=== PATIENT | male | born 1985 | race Caucasian/White ===

== ENCOUNTER 2017-02-18 01:15 | Inpatient (IN) | payer OTHER ==
[~2017-02-18] VITALS: Ht 188 cm; Wt 103.2 kg
[~2017-02-18 01:15] MED LIST: BUSP5 PO; IBUP600T26 PO; LEVE500 PO; LORA-474 PO; NAPR500 PO; PERC5TAB12 PO; [UNRECOGNIZED DRUG - CODE] PO
[2017-02-18 01:23] VITALS: BP 120/89; PULSE 111; RESP 18; TEMP 98.5; O2SAT 97
--- NOTE | 2017-02-18 01:30 | PD ---
HPI Chief Complaint: Psychiatric Symptoms Time Seen by Provider: 01:27 Travel History International Travel<30 days: No Contact w/Intl Traveler<30days: No Traveled to known affect area: No History of Present Illness HPI 32-year-old male brought to the emergency department under Del Real act for psychiatric evaluation. Patient states he was brought here after an argument with his neighbors. He threatened to "get his gun." Patient denies suicidal homicidal intent or ideation. He was simply angry. He admits to drinking large amount of alcohol this evening. He denies any acute medical needs. He has no other symptoms to report. [facility] Past Medical History Anxiety: Yes Psychiatric: Yes (PTSD, MOOD DISORDER) Seizures: Yes (SINCE CHILDHOOD) Social History Alcohol Use: Yes (SOCIALLY) Tobacco Use: Yes (1 PPD) Substance Use: No Allergies-Medications (Allergen,Severity, Reaction): Coded Allergies: No Known Allergies (Verified , 08/30/13) Reported Meds & Prescriptions Reported Meds & Active Scripts Active Reported [Seizure Medication] Buspirone (Buspirone HCl) 5 Mg Tab 5 Mg PO BID Review of Systems Except as stated in HPI: all other systems reviewed are Neg Physical Exam Narrative GENERAL: Well-nourished male patient, clinically intoxicated but in no acute distress. SKIN: Focused skin assessment warm/dry. HEAD: Atraumatic. Normocephalic. EYES: Pupils equal and round. No scleral icterus. No injection or drainage. ENT: No nasal bleeding or discharge. Mucous membranes pink and moist. NECK: Trachea midline. No JVD. CARDIOVASCULAR: tachycardic rate and rhythm. No murmur appreciated. RESPIRATORY: No accessory muscle use. Clear to auscultation. Breath sounds equal bilaterally. GASTROINTESTINAL: Abdomen soft, non-tender, nondistended. Hepatic and splenic margins not palpable. MUSCULOSKELETAL: No obvious deformities. No clubbing. No cyanosis. No edema. NEUROLOGICAL: Awake and alert. No obvious cranial nerve deficits. Motor grossly within normal limits. Slurred speech. Data Data Last Documented VS Vital Signs Date Time Temp Pulse Resp B/P (MAP) Pulse Ox O2 Delivery O2 Flow Rate FiO2 02/18/17 01:23 98.5 111 18 120/89 (99) 97 Orders Orders Complete Blood Count With Diff (02/18/17 01:28) Basic Metabolic Panel (Bmp) (02/18/17 01:28) Psych Screen (02/18/17 01:28) Drug Screen, Random Urine (02/18/17 01:28) Alcohol (Ethanol) (02/18/17 01:28) Labs Laboratory Tests Test 02/18/17 01:45 White Blood Count 17.2 TH/MM3 Red Blood Count 5.23 MIL/MM3 Hemoglobin 15.8 GM/DL Hematocrit 46.3 % Mean Corpuscular Volume 88.6 FL Mean Corpuscular Hemoglobin 30.2 PG Mean Corpuscular Hemoglobin Concent 34.2 % Red Cell Distribution Width 12.7 % Platelet Count 314 TH/MM3 Mean Platelet Volume 7.9 FL Neutrophils (%) (Auto) 78.0 % Lymphocytes (%) (Auto) 13.8 % Monocytes (%) (Auto) 5.3 % Eosinophils (%) (Auto) 2.2 % Basophils (%) (Auto) 0.7 % Neutrophils # (Auto) 13.4 TH/MM3 Lymphocytes # (Auto) 2.4 TH/MM3 Monocytes # (Auto) 0.9 TH/MM3 Eosinophils # (Auto) 0.4 TH/MM3 Basophils # (Auto) 0.1 TH/MM3 CBC Comment DIFF FINAL Differential Comment Blood Urea Nitrogen 10 MG/DL Creatinine 0.89 MG/DL Random Glucose 122 MG/DL Calcium Level 8.6 MG/DL Sodium Level 137 MEQ/L Potassium Level 4.2 MEQ/L Chloride Level 103 MEQ/L Carbon Dioxide Level 24.3 MEQ/L Anion Gap 10 MEQ/L Estimat Glomerular Filtration Rate 98 ML/MIN Urine Opiates Screen NEG Urine Barbiturates Screen NEG Urine Amphetamines Screen NEG Urine Benzodiazepines Screen NEG Urine Cocaine Screen NEG Urine Cannabinoids Screen NEG Ethyl Alcohol Level 253 MG/DL [facility] Medical Decision Making Medical Screen Exam Complete: Yes Emergency Medical Condition: Yes Medical Record Reviewed: Yes Differential Diagnosis Intoxication versus mood disorder versus personality disorder versus adjustment reaction disorder Narrative Course 32-year-old male presents to [facility] department under Del Real act for psychiatric evaluation. Patient appears without distress. He is slightly tachycardic but agitated. He is clinically intoxicated. Lab work is complete and reviewed. Leukocytosis is likely secondary to stress reaction. Patient is medically cleared to undergo psychiatric screening for further evaluation and disposition. Mental health screening discussed with the patient. Psychiatric screen ordered. Laboratory Tests Test 02/18/17 01:45 White Blood Count 17.2 TH/MM3 Red Blood Count 5.23 MIL/MM3 Hemoglobin 15.8 GM/DL Hematocrit 46.3 % Mean Corpuscular Volume 88.6 FL Mean Corpuscular Hemoglobin 30.2 PG Mean Corpuscular Hemoglobin Concent 34.2 % Red Cell Distribution Width 12.7 % Platelet Count 314 TH/MM3 Mean Platelet Volume 7.9 FL Neutrophils (%) (Auto) 78.0 % Lymphocytes (%) (Auto) 13.8 % Monocytes (%) (Auto) 5.3 % Eosinophils (%) (Auto) 2.2 % Basophils (%) (Auto) 0.7 % Neutrophils # (Auto) 13.4 TH/MM3 Lymphocytes # (Auto) 2.4 TH/MM3 Monocytes # (Auto) 0.9 TH/MM3 Eosinophils # (Auto) 0.4 TH/MM3 Basophils # (Auto) 0.1 TH/MM3 CBC Comment DIFF FINAL Differential Comment Blood Urea Nitrogen 10 MG/DL Creatinine 0.89 MG/DL Random Glucose 122 MG/DL Calcium Level 8.6 MG/DL Sodium Level 137 MEQ/L Potassium Level 4.2 MEQ/L Chloride Level 103 MEQ/L Carbon Dioxide Level 24.3 MEQ/L Anion Gap 10 MEQ/L Estimat Glomerular Filtration Rate 98 ML/MIN Urine Opiates Screen NEG Urine Barbiturates Screen NEG Urine Amphetamines Screen NEG Urine Benzodiazepines Screen NEG Urine Cocaine Screen NEG Urine Cannabinoids Screen NEG Ethyl Alcohol Level 253 MG/DL Diagnosis Primary Impression: Alcohol intoxication Qualified Codes: F10.929 - Alcohol use, unspecified with intoxication, unspecified Additional Impression: Substance induced mood disorder Condition: Stable Madeline Cross Feb 18, 2017 01:30
[2017-02-18] MEDS ORDERED: SEIZURE MEDICATION (01:33)
[2017-02-18] MEDS ORDERED: BUSP5TAB PO (01:33)
[2017-02-18 01:54] LABS: AUTOMATED NEUTROPHIL # 13.4 TH/MM3 (1.8-7.7); BASOPHIL # 0.1 TH/MM3 (0-0.2); BASOPHIL % 0.7 % (0.0-2.0); EOSINOPHIL # 0.4 TH/MM3 (0-0.4); EOSINOPHIL % 2.2 % (0.0-4.0); HEMATOCRIT 46.3 % (39.0-51.0); HEMOGLOBIN 15.8 GM/DL (13.0-17.0); LYMPH % 13.8 % (9.0-44.0); LYMPHOCYTE # 2.4 TH/MM3 (1.0-4.8); MEAN CELL VOLUME 88.6 FL (80.0-100.0); MEAN CORPUSCULAR HEMOGLOBIN 30.2 PG (27.0-34.0); MEAN CORPUSCULAR HGB CONC 34.2 % (32.0-36.0); MEAN PLATELET VOLUME 7.9 FL (7.0-11.0); MONO % 5.3 % (0.0-8.0); MONOCYTE # 0.9 TH/MM3 (0-0.9); PLATELET COUNT 314 TH/MM3 (150-450); RED BLOOD COUNT 5.23 MIL/MM3 (4.50-5.90); RED CELL DISTRIBUTION WIDTH 12.7 % (11.6-17.2); WHITE BLOOD COUNT 17.2 TH/MM3 (4.0-11.0)
[2017-02-18 02:08] LABS: BICARBONATE 24.3 MEQ/L (21.0-32.0); CALCIUM 8.6 MG/DL (8.5-10.1); CREATININE 0.89 MG/DL (0.60-1.30)
[2017-02-18 07:00] VITALS: BP 125/65; PULSE 99; RESP 18; TEMP 98.7; O2SAT 96
[2017-02-18 09:03] VITALS: BP 123/67; PULSE 72; RESP 20; TEMP 98.6; O2SAT 96
[2017-02-18] MEDS ORDERED: LORA0.5T PO (13:35)
[2017-02-18] MEDS ORDERED: KEPP10002 PO ×2 (13:36→13:37)
[2017-02-18] MEDS ORDERED: ESCI10TA PO (13:38)
[2017-02-18] MEDS ORDERED: DIPH25CA PO (13:39)
[2017-02-18] MEDS ORDERED: ETOD200 PO (13:41)
[2017-02-18 14:22] VITALS: BP 126/69; PULSE 92; RESP 16; TEMP 98.6; O2SAT 98
[2017-02-18] MEDS: levETIRAcetam 500 MG TAB PO SCH (14:34)
[2017-02-18] MEDS ORDERED: diphenhydrAMINE HCL 50 MG/ML VIAL IM PRN (19:30)
[2017-02-18] MEDS ORDERED: ETODOLAC 200 MG CAP PO PRN (19:30)
[2017-02-18] MEDS ORDERED: LORazepam 2 MG/ML VIAL IM PRN (19:30)
[2017-02-18] MEDS ORDERED: diphenhydrAMINE HCL 50 MG CAP PO PRN (19:30)
[2017-02-18] MEDS ORDERED: MAGNESIUM HYDROXIDE SUSP 30 ML CUP PO PRN (19:30)
[2017-02-18] MEDS ORDERED: LORazepam 1 MG TAB PO PRN (19:30)
[2017-02-18] MEDS ORDERED: ALUMINUM/MAGNESIUM/SIMETH 30 ML CUP PO PRN (19:30)
[2017-02-18] MEDS ORDERED: ACETAMINOPHEN 325 MG TAB PO PRN (19:30)
[2017-02-18] MEDS ORDERED: traZODone HCL 50 MG TAB PO PRN (19:30)
--- NOTE | 2017-02-18 19:33 | HHI.HP ---
Provisional Diagnosis Admission Date [place] [facility]. Adjustment disorder with mixed disturbance Alcohol abuse Certification of Person's Competence To Provide Express and Informed Consent I have personally examined Abdifatah Bryan , a person being served at [facility] on, Feb 18, 2017 19:21. Express and informed consent means consent voluntarily given in writing, by a competent person, after sufficient explanation and disclosure of the subject matter involved to enable the person to make a knowing and willful decision without any element of force, fraud, deceit, duress, or other form of constraint or coercion. This person is 18 years of age or older, is not now known to be incompetent to consent to treatment with a guardian advocate, and does not have a health care surrogate or proxy currently making medical treatment decisions. I have found this person to be one of the following: [] Competent to provide express and informed consent, as defined above, for voluntary admission to this facility and is competent to provide express and informed consent for treatment. He/she has the consistent capacity to make well reasoned, willful, and knowing decisions concerning his or her medical or mental health treatment. The person fully and consistently understands the purpose of the admission for examination/placement and is fully capable of personally exercising all rights [place] [] Incompetent to provide express and informed consent to voluntary admission, and this is incompetent to provide express and informed consent to treatment. The person must be transferred to involuntary status and a petition for a guardian advocate filed with the Circuit Court. [] Refusing to provide express and informed consent to voluntary admission but is competent to provide express and informed consent for treatment. The person must be discharged or transferred to involuntary status. Form shall be completed within 24 hours of a person's arrival at the receiving facility and filed in the clinical record of each person: 1. Admitted on a voluntary basis 2. Permitted to provide express and informed consent to his/her own treatment 3. Allowed to transfer from involuntary to voluntary status 4. Prior to permitting a person to consent to his or her own treatment after having been previously found incompetent to consent to treatment. History of Present Illness Capacity: Has Capacity HPI 32-year-old white male presents under a Del Real act after making threats to get his firearm from his house in order to obtain his child, from a neighbor's home. The patient had been drinking alcohol heavily last night and had an alcohol level close to 300. He is reportedly a and his friends advised [place] [employer] that he was diagnosed with posttraumatic stress disorder. Apparently the division of children and families insisted on the patient being Del Real acted due to his threats of violence with a gun, extreme alcohol intoxication, and placing his child in some type of danger. The patient is currently very contrite. He understands he drank too much alcohol and states he normally only drinks socially. He does have a seizure disorder since childhood and he was placed back on seizure medications by this physician. The patient admits to drinking multiple beers once per week. He admits to having an argument with his neighbors and making a statement to his neighbors about going to get his gun to make appointment. Patient states the same thing to this physician and denies any actual suicidal or homicidal ideation. He does remark "I was drunk, it was stupid." He is calm at this time. He is in school to obtain a graduate degree in social work. 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 He is treated on an outpatient basis at the [facility]. Patient does have a history of being charged for drug possession in 2013. Review of Systems Psychiatric: COMPLAINS OF: Anxiety Except as stated in HPI: all other systems reviewed are Neg Past Psych History Psychological trauma history Patient reports being diagnosed with posttraumatic stress disorder and his service-connected through the [place]. Violence risk - others (6 mos) Moderate to high Violence risk - self (6 mos) Minimal to moderate Substance Abuse History Drugs/Alcohol past 12 months Certainly abuse alcohol last evening. Past Family Social History Coded Allergies: No Known Allergies (Verified , 08/30/13) Reported Medications Etodolac (Etodolac) 200 Mg Cap, 300 MG PO BID Y for PAIN, CAP 0 Refills Take with food. 02/18/17 Diphenhydramine (Diphenhydramine) 25 Mg Cap, 25 MG PO HS Y for INSOMNIA, CAP 0 Refills 02/18/17 Escitalopram (Escitalopram) 10 Mg Tab, 10 MG PO DAILY, #30 TAB 0 Refills 02/18/17 Levetiracetam (Keppra) 1,000 Mg Tab, 1500 MG PO HS for Control Seizures, #60 TAB 0 Refills 02/18/17 Levetiracetam (Keppra) 1,000 Mg Tab, 1000 MG PO DAILY for Control Seizures, #60 TAB 0 Refills 02/18/17 Lorazepam (Lorazepam) 0.5 Mg Tab, 0.5 MG PO HS Y for ANXIETY AND/OR INSOMNIA, TAB 0 Refills 02/18/17 Discontinued Reported Medications [Seizure Medication] No Conflict Check 02/18/17 Buspirone (Buspirone) 5 Mg Tab, 5 MG PO BID for Anxiety, TAB 0 Refills 02/18/17 Current Medications Medications (Trade) Dose Ordered Sig/Wild Route Start Time Stop Time Status Last Admin (Keppra) 1,000 mg DAILY PO 02/18/17 14:00 02/18/17 14:34 (Keppra) 1,500 mg HS PO 02/19/17 21:00 (Ativan) 1 mg Q6H PRN PO 02/18/17 19:30 (Ativan Inj) 1 mg Q6H PRN IM 02/18/17 19:30 (Benadryl) 50 mg Q6H PRN PO 02/18/17 19:30 (Benadryl Inj) 50 mg Q6H PRN IM 02/18/17 19:30 (Tylenol) 650 mg Q4H PRN PO 02/18/17 19:30 (Milk Of Magnesia Liq) 30 ml DAILY PRN PO 02/18/17 19:30 UNV (Mag-Al Plus Susp Liq) 30 ml Q6H PRN PO 02/18/17 19:30 UNV (Desyrel) 50 mg HS PRN PO 02/18/17 19:30 UNV Family Psych History Positive for mood and anxiety disorders. Social History Patient lives alone. He has minimal family support. He drinks beer weekly. He has a history of drug abuse. 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 Patient's Strengths (min. 2) Verbal and has access to healthcare. Physical Exam GENERAL: SKIN: Warm and dry. HEAD: Normocephalic. EYES: No scleral icterus. No injection or drainage. NECK: Supple, trachea midline. No JVD or lymphadenopathy. CARDIOVASCULAR: Regular rate and rhythm without murmurs, gallops, or rubs. RESPIRATORY: Breath sounds equal bilaterally. No accessory muscle use. GASTROINTESTINAL: Abdomen soft, non-tender, nondistended. MUSCULOSKELETAL: No cyanosis, or edema. BACK: Nontender without obvious deformity. No CVA tenderness. Vital Signs Vital Signs Date Time Temp Pulse Resp B/P (MAP) Pulse Ox O2 Delivery O2 Flow Rate FiO2 02/18/17 14:22 98.6 92 16 126/69 (88) 98 02/18/17 07:00 Room Air Lab Results Test 02/18/17 01:45 White Blood Count 17.2 TH/MM3 Red Blood Count 5.23 MIL/MM3 Hemoglobin 15.8 GM/DL Hematocrit 46.3 % Mean Corpuscular Volume 88.6 FL Mean Corpuscular Hemoglobin 30.2 PG Mean Corpuscular Hemoglobin Concent 34.2 % Red Cell Distribution Width 12.7 % Platelet Count 314 TH/MM3 Mean Platelet Volume 7.9 FL Neutrophils (%) (Auto) 78.0 % Lymphocytes (%) (Auto) 13.8 % Monocytes (%) (Auto) 5.3 % Eosinophils (%) (Auto) 2.2 % Basophils (%) (Auto) 0.7 % Neutrophils # (Auto) 13.4 TH/MM3 Lymphocytes # (Auto) 2.4 TH/MM3 Monocytes # (Auto) 0.9 TH/MM3 Eosinophils # (Auto) 0.4 TH/MM3 Basophils # (Auto) 0.1 TH/MM3 CBC Comment DIFF FINAL Differential Comment Blood Urea Nitrogen 10 MG/DL Creatinine 0.89 MG/DL Random Glucose 122 MG/DL Calcium Level 8.6 MG/DL Sodium Level 137 MEQ/L Potassium Level 4.2 MEQ/L Chloride Level 103 MEQ/L Carbon Dioxide Level 24.3 MEQ/L Anion Gap 10 MEQ/L Estimat Glomerular Filtration Rate 98 ML/MIN Urine Opiates Screen NEG Urine Barbiturates Screen NEG Urine Amphetamines Screen NEG Urine Benzodiazepines Screen NEG Urine Cocaine Screen NEG Urine Cannabinoids Screen NEG Ethyl Alcohol Level 253 MG/DL Mental Status Examination Appearance: Appropriate Consciousness: Alert Orientation: x4 Motor Activity: Normal gait Speech: Unremarkable Language: Adequate Fund of Knowledge: Adequate Attention and Concentration: Adequate Memory: Unremarkable Mood: Sad Affect: Sad Thought Process & Associations: Intact Thought Content: Appropriate Hallucination Type: None Delusion Type: None Suicidal Ideation: No Suicidal Plan: No Suicidal Intention: No Homicidal Ideation: No Homicidal Plan: No Homicidal Intention: No Insight: Fair Judgment: Impulsive Assessment & Plan Problem List: (1) Adjustment disorder with mixed disturbance of emotions and conduct ICD Codes: F43.25 - Adjustment disorder with mixed disturbance of emotions and conduct (2) Alcohol abuse ICD Codes: F10.10 - Alcohol abuse, uncomplicated Assessment & Plan Estimated LOS: days. 32-year-old male under a Del Real act, being admitted due to significant alcohol intoxication and threats against neighbors with his firearm. This physician has ordered a CBC and comprehensive metabolic panel to determine if any infectious process or metabolic process is causing or contributing to the patient's mood disorder. This physician is also ordering thyroid stimulating home on, vitamin B-12 and vitamin D levels, to determine if any deficiency in these areas is causing her contribute into his depression. Additionally, this physician is obtaining hemoglobin A1c and a lipid panel as multiple psychotropic medicines may aggravate his lipids or cause an increase in blood sugars. Patient has a seizure disorder and placed back on Keppra. Hep us with the consult in for an evaluation of the patient due to that reason. This physician also ordered an EKG to determine the patient's cardiac conduction status which can be adversely affected by psychotropics. This physician spoke with the patient's nurse, Jocelynn regarding his recent behavior. Lastly, case management will also be involved to assist with further information gathering and disposition planning. Vinnie Gaston MD Feb 18, 2017 19:33
[2017-02-18] MEDS ORDERED: levETIRAcetam 500 MG TAB PO SCH (21:00)
[2017-02-19 00:15] VITALS: BP 131/92; PULSE 86; RESP 16; TEMP 98.1
[2017-02-19 05:42] VITALS: BP 134/58; PULSE 75; RESP 18; TEMP 97.6; O2SAT 99
[2017-02-19] MEDS ORDERED: levETIRAcetam 500 MG TAB PO SCH ×2 (09:00→21:00)
[2017-02-19] MEDS: levETIRAcetam 500 MG TAB PO SCH (09:00)
[2017-02-19 09:41] LABS: AUTOMATED NEUTROPHIL # 6.4 TH/MM3 (1.8-7.7); BASOPHIL # 0.1 TH/MM3 (0-0.2); BASOPHIL % 0.6 % (0.0-2.0); EOSINOPHIL # 0.6 TH/MM3 (0-0.4); EOSINOPHIL % 5.7 % (0.0-4.0); HEMATOCRIT 47.6 % (39.0-51.0); LYMPH % 23.4 % (9.0-44.0); LYMPHOCYTE # 2.3 TH/MM3 (1.0-4.8); MEAN CELL VOLUME 88.7 FL (80.0-100.0); MEAN CORPUSCULAR HEMOGLOBIN 29.7 PG (27.0-34.0); MEAN CORPUSCULAR HGB CONC 33.5 % (32.0-36.0); MEAN PLATELET VOLUME 8.2 FL (7.0-11.0); MONO % 6.5 % (0.0-8.0); MONOCYTE # 0.6 TH/MM3 (0-0.9); NEUT % 63.8 % (16.0-70.0); PLATELET COUNT 295 TH/MM3 (150-450); RED BLOOD COUNT 5.37 MIL/MM3 (4.50-5.90); RED CELL DISTRIBUTION WIDTH 12.4 % (11.6-17.2)
[2017-02-19 09:42] LABS: ALBUMIN 3.8 GM/DL (3.4-5.0); AST (GOT) 23 U/L (15-37); BICARBONATE 27.4 MEQ/L (21.0-32.0); BLOOD UREA NITROGEN 12 MG/DL (7-18); CHLORIDE 102 MEQ/L (98-107); CHOLESTEROL 169 MG/DL (120-200); CREATININE 1.15 MG/DL (0.60-1.30); GLOMERULAR FILTRATION RATE 73 ML/MIN (>89); SODIUM (NA) 136 MEQ/L (136-145); TRIGLYCERIDES 190 MG/DL (42-150)
[2017-02-19 09:46] LABS: GLUCOSE,RANDOM 123 MG/DL (74-106)
[2017-02-19 10:11] LABS: HEMOGLOBIN A1C 5.3 % (4.3-6.0)
[2017-02-19 10:15] LABS: ALKALINE PHOSPHATASE 77 U/L (45-117); ALT (GPT) 42 U/L (12-78); CHOLESTEROL/ HDL RATIO 4.59 RATIO; HDL CHOLESTEROL 36.8 MG/DL (40.0-60.0); LDL CHOLESTEROL 94 MG/DL (0-99); TOTAL BILIRUBIN ADULT 0.4 MG/DL (0.2-1.0); TOTAL PROTEIN 8.1 GM/DL (6.4-8.2)
--- NOTE | 2017-02-19 10:57 | HHI.DS ---
Psychiatry Discharge Summary Inpatient Psychiatric care?: Yes Advance Directive: No Reason Not Provided: declined Mental Health AdvanceDirective: No Health Care Proxy: No Admission Admission Date Feb 18, 2017 at 19:18 Admission Diagnosis: (1) Adjustment disorder with mixed disturbance of emotions and conduct ICD Code: F43.25 - Adjustment disorder with mixed disturbance of emotions and conduct (2) Alcohol abuse ICD Code: F10.10 - Alcohol abuse, uncomplicated Brief History 32-year-old white male presents under a [place] act after making threats to get his firearm from his house in order to obtain his child, from a neighbor's home. The patient had been drinking alcohol heavily last night and had an alcohol level close to 300. He is reportedly a and his friends advised [place] [employer] that he was diagnosed with posttraumatic stress disorder. Apparently the division of children and families insisted on the patient being [place] acted due to his threats of violence with a gun, extreme alcohol intoxication, and placing his child in some type of danger. The patient is currently very contrite. He understands he drank too much alcohol and states he normally only drinks socially. He does have a seizure disorder since childhood and he was placed back on seizure medications by this physician. The patient admits to drinking multiple beers once per week. He admits to having an argument with his neighbors and making a statement to his neighbors about going to get his gun to make appointment. Patient states the same thing to this physician and denies any actual suicidal or homicidal ideation. He does remark "I was drunk, it was stupid." He is calm at this time. He is in school to obtain a graduate degree in social work. 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 He is treated on an outpatient basis at the [facility]. Patient does have a history of being charged for drug possession in 2013. Tobacco Use In Past 30 Days: 5 or More Cigarettes/Day Alcohol Use: 2-4 Times Per Month Hospital Course Patient was admitted to a locked, inpatient psychiatric unit. Appropriate precautions were in place throughout patient's hospital stay. Patient was seen and examined on the unit by psychiatry and also visited by counselor. There was no evidence of any suicidality or homicidality on the inpatient unit. The patient has remained in good behavioral control. On the day of discharge: Patient seen and examined with nurse. Chart reviewed. Case discussed with nursing staff who reports that the patient has been no behavioral problem overnight and is expressing remorse regarding his behavior while intoxicated. On my examination today, the patient is requesting discharge from the inpatient psychiatric unit today. He is calm and pleasant on exam. He is clinically sober with no signs of withdrawal. He adamantly denies any suicidal or homicidal ideation, intent or plan on direct questioning and contracts for safety. He insists that his presenting behavioral disturbance was entirely related to his intoxicated state. He expresses remorse for this behavior. He says that he doesn't drink often, but when he does he has had problems as a result in the past. We discussed the possibility of a binge drinking problem, and the patient is agreeable to seeking chemical dependency evaluation and treatment on an outpatient basis. I can elicit no depressive or hypomanic/ manic symptoms. He denies any audiovisual hallucinations. I can elicit no delusional material. There is no evidence of any impairment in reality construction. He denies any history of violent behavior. He denies any history of suicide attempts in the past. He denies any family history of alcoholism or other substance use disorder. He has no physical complaints at this time. With patient's permission, I have obtained collateral from his father Rafiq at [phone]. Rafiq corroborates patient's narrative that the patient's presenting behavioral disturbance was entirely alcohol-related. He says that this behavior was "completely out of the ordinary" for the patient. He reports that the patient is not typically a heavy drinker. He has actually no concerns about the patient being a risk of harm to himself or others if he is discharged today. He reports that the patient has no previous history of suicide attempts or violence. Looking at the totality of the case, I ticket dispatcher that the patient suicide and violence risk assessment on day of discharge both suggest lower imminent risk, and the patient's level of function is adequate for outpatient care. He therefore does not meet criteria for involuntary psychiatric hospitalization. Given that he is requesting discharge today, I have no basis to retain him on the unit over his objection any longer. I will arrange for his discharge home today with psychiatric follow-up as arranged by counselor to include chemical dependency evaluation and treatment. In particular, I have instructed the counselors to refer the patient for drug and alcohol assessment through the [facility] in addition to providing general community resources as [facility] Patient is also to follow-up with primary care. I have counseled the patient to abstain from abuse of drugs or alcohol. I counseled the patient regarding warning signs for need to return to the psychiatric emergency room as part of a general safety plan. Results Blood Pressure 134 / 58 Vital Signs Date Time Temp Pulse Resp B/P (MAP) Pulse Ox O2 Delivery O2 Flow Rate FiO2 02/19/17 05:42 97.6 75 18 134/58 (83) 99 02/18/17 07:00 Room Air Laboratory Tests Test 02/18/17 01:45 02/19/17 08:33 02/19/17 08:35 White Blood Count 17.2 TH/MM3 (4.0-11.0) Neutrophils (%) (Auto) 78.0 % (16.0-70.0) Neutrophils # (Auto) 13.4 TH/MM3 (1.8-7.7) Random Glucose 122 MG/DL (74-106) 123 MG/DL (74-106) Ethyl Alcohol Level 253 MG/DL (0-5) Estimat Glomerular Filtration Rate 73 ML/MIN (>89) Triglycerides Level 190 MG/DL (42-150) HDL Cholesterol 36.8 MG/DL (40.0-60.0) 25-Hydroxy Vitamin D Total 18.9 ng/ML (30-100) Eosinophils (%) (Auto) 5.7 % (0.0-4.0) Eosinophils # (Auto) 0.6 TH/MM3 (0-0.4) Laboratory Results Test 02/19/17 08:33 Cholesterol Level 169 MG/DL (120-200) HDL Cholesterol 36.8 MG/DL (40.0-60.0) Hemoglobin A1c 5.3 % (4.3-6.0) LDL Cholesterol 94 MG/DL (0-99) Triglycerides Level 190 MG/DL (42-150) Summary of Major Lab Results Vitamin D level low without calcium derangement. I have ordered vitamin D supplement as well as a follow-up vitamin D level in 2 months. GFR somewhat decreased and I have ordered a follow-up BMP on discharge. Summary of Procedures None done Imaging None done Pending results at discharge: No Medications # of Antipsychotic meds at D/C: 0 Approp Antipsych med options 1 - Minimum of three failed multiple trials of monotherapy. 2 - Documented plan to taper to monotherapy due to previous use of multiple meds OR cross-taper in progress at D/C. 3 - Documentation of augmentation of Clozapine. 4 - Justification other than those listed in allowable values 1-3, document here : Discharge Discharge Date: Feb 19, 2017 Discharge Diagnosis: (1) Adjustment disorder with mixed disturbance of emotions and conduct Diagnosis: Principal (resolved) ICD Code: F43.25 - Adjustment disorder with mixed disturbance of emotions and conduct (2) Alcohol abuse Diagnosis: Secondary (counseled to quit) ICD Code: F10.10 - Alcohol abuse, uncomplicated Pt Condition on Discharge: Stable Discharge Disposition: Discharge Home Discharge Instructions Diet Instructions: As Tolerated, No Restrictions Activities you can perform: Weight Bearing as Ketty Scheduled Appointment: as per counselor's notes New Orders: BASIC METABOLIC PROF - 1 Week VITAMIN D,25-HYDROXY - 2 Months New Medications: Cholecalciferol (Vitamin D3) 400 Unit Tab 400 UNITS PO DAILY for Nutritional Supplement for 15 Days, #15 TAB 1 Refill Continued Medications: Diphenhydramine (Diphenhydramine) 25 Mg Cap 25 MG PO HS PRN for INSOMNIA, CAP 0 Refills Escitalopram (Escitalopram) 10 Mg Tab 10 MG PO DAILY, #30 TAB 0 Refills Etodolac (Etodolac) 200 Mg Cap 300 MG PO BID PRN for PAIN, CAP 0 Refills Take with food. Levetiracetam (Keppra) 1,000 Mg Tab 1000 MG PO DAILY for Control Seizures, #60 TAB 0 Refills Levetiracetam (Keppra) 1,000 Mg Tab 1500 MG PO HS for Control Seizures, #60 TAB 0 Refills Discontinued Medications: Lorazepam (Lorazepam) 0.5 Mg Tab 0.5 MG PO HS PRN for ANXIETY AND/OR INSOMNIA, TAB 0 Refills Discharge Time > 30 minutes Mental Status Examination Appearance: Appropriate Consciousness: Alert Orientation: x4 Motor Activity: Normal gait, Other (no motoric abnormalities noted. No signs of withdrawal noted.) Speech: Unremarkable Language: Adequate Fund of Knowledge: Adequate Attention and Concentration: Adequate Memory: Unremarkable Mood: Appropriate Affect: Appropriate Thought Process & Associations: Intact, Logical, Goal directed, Linear Thought Content: Appropriate Hallucination Type: None Delusion Type: None Suicidal Ideation: No Suicidal Plan: No Suicidal Intention: No Homicidal Ideation: No Homicidal Plan: No Homicidal Intention: No Insight: Fair Judgment: Adequate (fair) Mental Status Exam Remarks No ictal activity noted Discharge/Advance Care Plan Health Problems: (1) Adjustment disorder with mixed disturbance of emotions and conduct (2) Alcohol abuse Goals to promote your health * To prevent worsening of your condition and complications * To maintain your health at the optimal level Directions to meet your goals Take your medications as prescribed Follow your dietary instruction Follow activity as directed Keep your appointments as scheduled Take your immunizations and boosters as scheduled If your symptoms worsen call your PCP, if no PCP go to Urgent Care Center or Emergency Room For 04/09 questions related to your inpatient stay or results of tests pending at discharge, please contact Dr. Tito Steen at Smoking is Dangerous to Your Health. Avoid second hand smoking Tito Steen MD Feb 19, 2017 10:57
[2017-02-19] MEDS ORDERED: VITD400 PO (12:19)
--- NOTE | 2017-02-19 18:53 | EKG ---
Date Performed: 02/19/2017 Time Performed: 07:19:11 PTAGE: 32 years EKG: Sinus rhythm NORMAL ECG PREVIOUS TRACING : 07/14/2010 10.40 Compared to prior tracing no significant change DOCTOR: Purvi Ghosh Interpretating Date/Time 02/19/2017 18:52:45
== END 2017-02-19 13:40 | disposition home or self-care (01) | DRG 882 ==
LOC: NEPD 01:15 → NEDA 19:18 → H270 02-19 00:15
PROVIDERS: ADMIT Psychiatry & Neurology Psychiatry; ATTEND Psychiatry & Neurology Psychiatry
DX: F43.25 Adjustment disorder with mixed disturbance of emotions and conduct (principal); G40.909 Epilepsy, unspecified, not intractable, without status epilepticus; D72.829 Elevated white blood cell count, unspecified; F10.129 Alcohol abuse with intoxication, unspecified; F43.10 Post-traumatic stress disorder, unspecified; Y90.8 Blood alcohol level of 240 mg/100 ml or more; Z72.0 Tobacco use
CPT/HCPCS: 80048; 80053; 80061; 80307; 82306; 82607; 83036; 84443; 85025; 93005; 99285

== ENCOUNTER 2017-09-22 03:55 | Inpatient (IN) ==
[2017-09-22] MEDS ORDERED: Diphtheria/Tetanus/Pertussis Vaccine Inj 0.5 ML Syringe IM ONE (04:02)
[2017-09-22] MEDS ORDERED: Morphine Inj 4 MG/ML Vial ONE (04:04)
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
[2017-09-22 04:26] LABS: Baso # (Auto) 0.1 th/mm3 (0.0-0.2); Baso % (Auto) 0.7 % (0.0-2.0); Eos # (Auto) 0.4 th/mm3 (0.0-0.4); Eos % (Auto) 3.3 % (0.0-4.0); Hematocrit 44.8 % (39.0-51.0); Hemoglobin 15.1 gm/dL (13.0-17.0); Lymph % (Auto) 22.1 % (9.0-44.0); Mean Corpuscular HGB Conc 33.6 % (32.0-36.0); Mean Corpuscular Hemoglobin 30.6 pg (27.0-34.0); Mean Platelet Volume 7.9 fL (7.0-11.0); Mono # (Auto) 0.8 th/mm3 (0.0-0.9); Mono % (Auto) 6.1 % (0.0-8.0); Neut # (Auto) 9.3 th/mm3 (1.8-7.7); Neut % (Auto) 67.8 % (16.0-70.0); Platelet Count 305 th/mm3 (150-450); Red Blood Count 4.93 mil/mm3 (4.50-5.90); Red Cell Distribution Width 13.2 % (11.6-17.2); White Blood Count 13.6 th/mm3 (4.0-11.0)
[2017-09-22 04:32] LABS: ABG Base Excess -3.8 mmol/L (-2-2); ABG PCO2 40 mmHg (38-42); ABG PO2 82 mmHg (61-120)
[2017-09-22 04:35] LABS: Activated Partial Thrombo Time 22.4 sec (24.3-30.1); Prothrombin Time 10.3 sec (9.8-11.6)
[2017-09-22 04:47] LABS: Calcium 8.1 mg/dL (8.5-10.1); Carbon Dioxide 21.4 meq/L (21.0-32.0); Potassium 3.6 meq/L (3.5-5.1)
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
[2017-09-22] MEDS ORDERED: Acetaminophen 325 MG Tablet PO PRN (05:11)
[2017-09-22] MEDS ORDERED: Naloxone Inj 0.4 MG/ML Vial IV.PUSH PRN (05:11)
[2017-09-22] MEDS ORDERED: Post-op Orders (for Pharmacy) OTHER ONE (05:11)
[2017-09-22] MEDS ORDERED: Bisacodyl 10 MG Supp RECTAL PRN (05:11)
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
[2017-09-22] MEDS: Famotidine 20 MG Tablet PO SCH ×2 (09:05→20:40)
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
[2017-09-22] MEDS: Senna/Docusate Sodium 8.6/50 MG Tablet PO SCH ×2 (09:21→20:39)
[2017-09-22] MEDS: Sod Chloride 0.9% Inj 1,000 ML IV.CONT SCH ×2 (09:43→20:43)
[2017-09-22 10:34] LABS: Bacteria,Urine Rare /hpf; Bilirubin,Urine Negative (Negative); Clarity,Urine Clear (Clear); Color,Urine Straw (Yellw/Straw); Glucose,Urine (UA) Negative (Negative); Leukocyte Esterase,Urine Negative (Negative); Mucus,Urine Few /lpf (Occasional); Nitrite,Urine Negative (Negative); Specific Gravity,Urine 1.028 (1.002-1.035); Squamous Epithelial Cell,Urine <1 /hpf (0-5)
[2017-09-22 10:37] LABS: Amphetamine Screen,Urine Neg (Neg); Barbiturate Screen,Urine Neg (Neg); Cannabinoid Screen,Urine Neg (Neg); Cocaine Screen,Urine Neg (Neg)
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
[2017-09-22 11:12] LABS: Opiate Screen,Urine Neg (Neg)
[2017-09-22] MEDS: oxyCODONE/Acetaminophen 10/325 Tablet PO PRN ×2 (14:23→18:17)
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
[2017-09-22] MEDS ORDERED: levETIRAcetam 500 MG Tablet PO ONE (17:41)
[2017-09-22] MEDS: FLUoxetine 20 MG Capsule PO SCH (18:18)
[2017-09-22] MEDS: Morphine Inj 4 MG/ML Vial IV.PUSH PRN (20:42)
[2017-09-22] MEDS ORDERED: Divalproex 250 MG DR Tablet PO SCH (21:00)
[2017-09-23] MEDS: Sod Chloride 0.9% Inj 1,000 ML IV.CONT SCH (01:28)
[2017-09-23] MEDS: oxyCODONE/Acetaminophen 10/325 Tablet PO PRN ×2 (01:31→09:19)
[2017-09-23] MEDS: Morphine Inj 4 MG/ML Vial IV.PUSH PRN (05:45)
[2017-09-23] MEDS ORDERED: levETIRAcetam 500 MG Tablet PO SCH (09:00)
[2017-09-23 09:01] VITALS: BP 143/78; RESP 16; TEMP 98.8
[2017-09-23 09:08] VITALS: O2SAT 98
[2017-09-23] MEDS: Famotidine 20 MG Tablet PO SCH (09:19)
[2017-09-23] MEDS: Senna/Docusate Sodium 8.6/50 MG Tablet PO SCH (09:19)
[2017-09-23] MEDS: FLUoxetine 20 MG Capsule PO SCH (09:19)
[2017-09-23 10:10] VITALS: PULSE 76
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
== END 2017-09-23 12:48 | disposition home or self-care (01) ==
LOC: NEPHCDU 03:55 → NEPC 03:55 → NEDA 03:55 → OBSVTOIN 05:11 → NEPHCDU 06:35
PROVIDERS: ADMIT Surgery; ATTEND Surgery